=== PATIENT | male | born 1965 | race African-American/Black ===

== ENCOUNTER 2018-09-18 11:13 | Inpatient (IN) | payer MEDICAID ==
[~2018-09-18] VITALS: Ht 175.3 cm; Wt 132.9 kg
[2018-09-18] MEDS ORDERED: SODIUM CHLORIDE 0.9% 1,000 ML IV ONE (11:56)
[2018-09-18] MEDS ORDERED: MORPHINE SULFATE 4 MG/ML CPJ (NOT FOR IM USE) IV STA (11:56)
[2018-09-18] MEDS ORDERED: ONDANSETRON HCL 4MG/2ML INJ IV STA (11:56)
[2018-09-18] MEDS ORDERED: LEVOFLOXACIN 750MG PREMIX 150 ML IV ONE (14:00)
[2018-09-18] MEDS ORDERED: METRONIDAZOLE 500 MG PREMIX 100 ML IV ONE (14:00)
[2018-09-18 14:25] LABS: BASOPHILS % 0.4 % (0.0-2.0); EOSINOPHILS % 2.2 % (0.0-5.0); HEMATOCRIT. 40.7 % (42.0-52.0); HEMOGLOBIN. 12.7 g/dL (14.0-18.0); LYMPHOCYTES % 16.8 % (20.0-50.0); MEAN CORPUSCULAR HEMOGLOBIN 24.6 pg (28.0-32.0); MEAN PLATELET VOLUME 9.9 fl (7.4-10.4); MONOCYTES % 6.3 % (2.0-8.0); NEUTROPHILS % 74.3 % (40.0-76.0); PLATELET 228 x1000/uL (130-400); RED BLOOD CELL COUNT 5.15 mill/uL (4.7-6.1); RED CELL DISTRIBUTION WIDTH 17.4 % (11.6-14.6)
[2018-09-18 14:35] LABS: INR 1.1; PROTHROMBIN TIME 10.7 sec (9.1-11.1)
[2018-09-18 15:02] LABS: CLARITY URINE CLEAR (CLEAR); COLOR URINE YELLOW (YELLOW); KETONES URINE NEGATIVE (NEGATIVE); LEUKOCYTE ESTERASE URINE NEGATIVE (NEGATIVE); NITRITE URINE NEGATIVE (NEGATIVE); OCCULT BLOOD URINE TRACE (NEGATIVE); PROTEIN URINE 2+ (NEGATIVE); SPECIFIC GRAVITY URINE 1.012 (1.005-1.030)
[2018-09-18] MEDS ORDERED: IPRATROPIUM/ALBUTEROL 0.5-3(2.5)MG/3ML NEB INH PRN (16:15)
[2018-09-18] MEDS ORDERED: GUAIFENESIN 200MG/10ML SUGAR FREE UDC PO PRN (16:15)
[2018-09-18] MEDS ORDERED: ACETAMINOPHEN 650MG/20.3ML UDC GT PRN (16:15)
[2018-09-18] MEDS ORDERED: ACETAMINOPHEN 325MG TABLET PO PRN (16:15)
[2018-09-18] MEDS ORDERED: DOCUSATE SODIUM 100MG CAPSULE PO PRN (16:15)
[2018-09-18] MEDS ORDERED: ACETAMINOPHEN 650MG SUPP PR PRN (16:15)
[2018-09-18] MEDS ORDERED: DIPHENHYDRAMINE 50MG/ML VIAL IV PRN (16:15)
[2018-09-18] MEDS ORDERED: MAGNESIUM/ALUMINUM HYDROXIDE/SIMETHICONE 30ML UDC PO PRN (16:15)
[2018-09-18] MEDS ORDERED: NA PHOS,M-B/NA PHOS,DI-BA ENEMA 118ML PR PRN (16:15)
[2018-09-18] MEDS ORDERED: ONDANSETRON HCL 4MG/2ML INJ IV PRN (16:15)
[2018-09-18 17:10] LABS: CHLORIDE 104 mEq/L (98-107)
[2018-09-18 17:11] LABS: BASOPHILS % 0.5 % (0.0-2.0); EOSINOPHILS % 1.8 % (0.0-5.0); HEMATOCRIT. 39.9 % (42.0-52.0); HEMOGLOBIN. 12.6 g/dL (14.0-18.0); LYMPHOCYTES % 21.9 % (20.0-50.0); MEAN CORPUSCULAR HEMOGLOBIN 24.8 pg (28.0-32.0); MEAN CORPUSCULAR VOLUME 78.4 fL (80.0-94.0); MEAN PLATELET VOLUME 8.9 fl (7.4-10.4); MONOCYTES % 7.3 % (2.0-8.0); NEUTROPHILS % 68.5 % (40.0-76.0); PLATELET 270 x1000/uL (130-400); RED BLOOD CELL COUNT 5.08 mill/uL (4.7-6.1); RED CELL DISTRIBUTION WIDTH 17.1 % (11.6-14.6)
[2018-09-18 18:47] LABS: *AMPHETAMINES SCREEN URINE NEGATIVE (NEGATIVE); *BARBITURATES SCREEN URINE NEGATIVE (NEGATIVE); *BENZODIAZEPINES SCREEN URINE NEGATIVE (NEGATIVE); *COCAINE SCREEN URINE NEGATIVE (NEGATIVE)
[2018-09-18 18:48] LABS: CANNABINOID URINE SCREEN NEGATIVE (NEGATIVE); METHADONE URINE SCREEN NEGATIVE (NEGATIVE); OPIATES URINE SCREEN NEGATIVE (NEGATIVE); PHENCYCLIDINE URINE SCREEN NEGATIVE (NEGATIVE)
[2018-09-18 20:00] VITALS: BP 158/88
[2018-09-18] MEDS ORDERED: LEVOFLOXACIN 500MG PREMIX 100 ML IV SCH (21:00)
[2018-09-18 22:00] VITALS: BP 157/88
[2018-09-18] MEDS: HYDROCODONE/ACETAMINOPHEN 5/325MG TABLET PO PRN (23:25)
[2018-09-18] MEDS: CLONIDINE 0.1MG TABLET PO PRN (23:29)
[2018-09-18] MEDS: METRONIDAZOLE 500 MG PREMIX 100 ML IV SCH (23:30)
[2018-09-18] MEDS: ENOXAPARIN 40MG/0.4ML SYR SUBCUT SCH (23:32)
[2018-09-18] MEDS: SODIUM CHLORIDE 0.9% INJ 3ML FLUSH IVF SCH (23:51)
[2018-09-19] VITALS: BP 141/72
[2018-09-19] MEDS ORDERED: DEXTROSE 50% WATER 50ML SYRINGE IV PRN (00:15)
[2018-09-19 04:00] VITALS: BP 171/85
[2018-09-19] MEDS: METRONIDAZOLE 500 MG PREMIX 100 ML IV SCH ×2 (05:15→13:07)
[2018-09-19] MEDS: SODIUM CHLORIDE 0.9% INJ 3ML FLUSH IVF SCH ×2 (05:15→14:00)
[2018-09-19 07:25] LABS: CHLORIDE 105 mEq/L (98-107)
[2018-09-19 07:35] LABS: BASOPHILS % 0.6 % (0.0-2.0); HEMATOCRIT. 40.4 % (42.0-52.0); HEMOGLOBIN. 12.7 g/dL (14.0-18.0); LYMPHOCYTES % 18.5 % (20.0-50.0); MEAN CORPUSCULAR HEMOGLOBIN 24.7 pg (28.0-32.0); MEAN CORPUSCULAR VOLUME 78.8 fL (80.0-94.0); MEAN PLATELET VOLUME 8.8 fl (7.4-10.4); MONOCYTES % 9.3 % (2.0-8.0); NEUTROPHILS % 70.6 % (40.0-76.0); PLATELET 281 x1000/uL (130-400); RED BLOOD CELL COUNT 5.12 mill/uL (4.7-6.1); RED CELL DISTRIBUTION WIDTH 17.7 % (11.6-14.6)
[2018-09-19 07:38] LABS: LDL CHOLESTEROL 127 mg/dL (5-100)
[2018-09-19 07:39] LABS: HDL CHOLESTEROL 40 mg/dL (40-59)
[2018-09-19] MEDS: BLOOD SUGAR DIAGNOSTIC STRIP TEST SCH ×4 (07:39→21:00)
[2018-09-19 08:00] VITALS: BP 190/88
[2018-09-19] MEDS: HYDROCODONE/ACETAMINOPHEN 5/325MG TABLET PO PRN ×2 (08:36→17:51)
[2018-09-19] MEDS: ENOXAPARIN 40MG/0.4ML SYR SUBCUT SCH ×2 (08:37→22:21)
[2018-09-19] MEDS: CLONIDINE 0.1MG TABLET PO PRN ×2 (08:41→17:52)
[2018-09-19] MEDS: INSULIN LISPRO 100 UNITS/ML SUBCUT SCH ×4 (08:44→21:00)
[2018-09-19] MEDS: AMLODIPINE 10MG TABLET PO SCH (10:14)
[2018-09-19] MEDS: BENAZEPRIL 10MG TABLET PO SCH (10:14)
[2018-09-19 12:00] VITALS: BP 170/84
[2018-09-19 16:00] VITALS: BP 125/67
[2018-09-19] MEDS ORDERED: HYDROCODONE/ACETAMINOPHEN 10/325MG TABLET PO PRN (18:45)
[2018-09-19] MEDS ORDERED: MORPHINE SULFATE 4 MG/ML CPJ (NOT FOR IM USE) IV PRN (18:45)
[2018-09-19 20:00] VITALS: BP 168/96
[2018-09-19] MEDS: LEVOFLOXACIN 500MG PREMIX 100 ML IV SCH (22:20)
[2018-09-20] VITALS: BP 195/96
[2018-09-20] MEDS: METRONIDAZOLE 500 MG PREMIX 100 ML IV SCH ×3 (00:51→15:07)
[2018-09-20] MEDS: CLONIDINE 0.1MG TABLET PO PRN ×3 (00:52→21:11)
[2018-09-20 04:00] VITALS: BP 184/87
[2018-09-20] MEDS: BLOOD SUGAR DIAGNOSTIC STRIP TEST SCH ×4 (06:55→21:10)
[2018-09-20 08:00] VITALS: BP 211/101
[2018-09-20] MEDS: ENOXAPARIN 40MG/0.4ML SYR SUBCUT SCH ×2 (08:25→21:10)
[2018-09-20] MEDS: BENAZEPRIL 10MG TABLET PO SCH (08:27)
[2018-09-20] MEDS: AMLODIPINE 10MG TABLET PO SCH (08:28)
[2018-09-20] MEDS: INSULIN LISPRO 100 UNITS/ML SUBCUT SCH ×4 (08:38→21:26)
[2018-09-20 12:32] VITALS: BP 175/91
[2018-09-20] MEDS ORDERED: HYDRALAZINE HCL 50MG TABLET PO SCH (12:40)
[2018-09-20] MEDS: SODIUM CHLORIDE 0.9% INJ 3ML FLUSH IVF SCH ×2 (14:00→21:15)
[2018-09-20 16:00] VITALS: BP 188/103
[2018-09-20] MEDS: ENALAPRIL 1.25 MG in DEXTROSE 5% WATER 49 ML IV PRN (16:09)
[2018-09-20 20:00] VITALS: BP 195/100
[2018-09-20] MEDS: LEVOFLOXACIN 500MG PREMIX 100 ML IV SCH (21:08)
[2018-09-20] MEDS: HYDRALAZINE HCL 50MG TABLET PO SCH (21:11)
[2018-09-21] VITALS: BP 173/98
[2018-09-21 04:00] VITALS: BP 187/97
[2018-09-21] MEDS: CLONIDINE 0.1MG TABLET PO PRN ×2 (05:41→11:54)
[2018-09-21] MEDS: HYDRALAZINE HCL 50MG TABLET PO SCH ×2 (05:42→13:41)
[2018-09-21] MEDS: SODIUM CHLORIDE 0.9% INJ 3ML FLUSH IVF SCH (05:43)
[2018-09-21] MEDS: BLOOD SUGAR DIAGNOSTIC STRIP TEST SCH ×2 (05:45→12:21)
[2018-09-21] MEDS: INSULIN LISPRO 100 UNITS/ML SUBCUT SCH ×2 (07:54→11:55)
[2018-09-21] MEDS: METRONIDAZOLE 500 MG PREMIX 100 ML IV SCH ×2 (08:39)
[2018-09-21] MEDS: AMLODIPINE 10MG TABLET PO SCH (08:40)
[2018-09-21] MEDS: BENAZEPRIL 10MG TABLET PO SCH (08:40)
[2018-09-21] MEDS: ENOXAPARIN 40MG/0.4ML SYR SUBCUT SCH (08:41)
[2018-09-21 09:32] LABS: BASOPHILS % 0.7 % (0.0-2.0); EOSINOPHILS % 1.5 % (0.0-5.0); HEMATOCRIT. 41.9 % (42.0-52.0); HEMOGLOBIN. 13.2 g/dL (14.0-18.0); LYMPHOCYTES % 20.6 % (20.0-50.0); MEAN CORPUSCULAR HEMOGLOBIN 24.8 pg (28.0-32.0); MEAN CORPUSCULAR VOLUME 78.8 fL (80.0-94.0); MEAN PLATELET VOLUME 8.8 fl (7.4-10.4); MONOCYTES % 8.7 % (2.0-8.0); NEUTROPHILS % 68.5 % (40.0-76.0); PLATELET 298 x1000/uL (130-400); RED BLOOD CELL COUNT 5.32 mill/uL (4.7-6.1); RED CELL DISTRIBUTION WIDTH 17.8 % (11.6-14.6)
[2018-09-21 09:43] LABS: CHLORIDE 105 mEq/L (98-107)
[2018-09-21] MEDS ORDERED: ENALAPRIL 1.25MG/ML VIAL 1ML IV ONE (09:45)
[2018-09-21] MEDS: ENALAPRIL 1.25 MG in DEXTROSE 5% WATER 49 ML IV PRN (11:42)
[2018-09-21 12:00] VITALS: BP 186/88
[2018-11-18] MEDS ORDERED: AMLO10TA80 MT (12:37)
[2018-11-18] MEDS ORDERED: ATOR80TA MT (12:37)
[2018-11-18] MEDS ORDERED: METF-416 MT (12:37)
[2018-11-18] MEDS ORDERED: METO25TA6 MT (12:37)
[2018-11-18] MEDS ORDERED: FURO20TA4 MT (12:37)
[2018-11-18] MEDS ORDERED: PANT40TA4 MT (12:37)
[2018-11-18] MEDS ORDERED: AMLO10TA4 MT (12:37)
[2018-11-18] MEDS ORDERED: HYDR25TA MT (12:37)
[2018-11-18] MEDS ORDERED: NITR0.4T49 SL (12:37)
[2018-11-18] MEDS ORDERED: CLON0.1T PO (12:37)
[2018-11-18] MEDS ORDERED: clotrimazole (12:37)
[2018-11-18] MEDS ORDERED: DULO60CA63 MT (12:37)
[2018-11-18] MEDS ORDERED: RIVA20TA MT (12:37)
[2018-11-18] MEDS ORDERED: LISI-186 MT (12:37)
[2018-11-20] MEDS ORDERED: GLIP5TAB12 MT (10:18)
[2018-11-20] MEDS ORDERED: DOCU250C14 PO (10:18)
[2018-11-20] MEDS ORDERED: FOLI-43 PO (10:18)
[2018-11-20] MEDS ORDERED: METO-411 MT (10:18)
== END 2018-09-21 15:45 | disposition home or self-care (01) | DRG 248 ==
LOC: ER 11:13 → 6EST 14:12 → ENRESERV 16:35
PROVIDERS: ADMIT Family Medicine; ATTEND Family Medicine
DX: A04.9 Bacterial intestinal infection, unspecified (principal); F20.9 Schizophrenia, unspecified; Z68.41 Body mass index [BMI] 40.0-44.9, adult; E11.9 Type 2 diabetes mellitus without complications; E78.5 Hyperlipidemia, unspecified; I10 Essential (primary) hypertension; I25.10 Atherosclerotic heart disease of native coronary artery without angina pectoris; K76.9 Liver disease, unspecified; K80.20 Calculus of gallbladder without cholecystitis without obstruction; E66.9 Obesity, unspecified; I25.2 Old myocardial infarction; Z86.73 Personal history of transient ischemic attack (TIA), and cerebral infarction without residual deficits
CPT/HCPCS: 36415; 71045; 74176; 80061; 80305; 82962; 93005; 96374; 99285; C1893; J1650; J1815; J1956; J2270; J2405; J3490; J7030; J7040; J7060

== ENCOUNTER 2019-01-06 19:21 | Emergency (ER) | payer MEDICAID ==
[~2019-01-06] VITALS: Ht 172.7 cm; Wt 90.0 kg
[~2019-01-06 19:21] MED LIST: AMLO5TAB88 MT; ASPI-986 PO; CARV12.545 MT; DOCU250C14 PO; FOLI-43 PO; GLIP5TAB12 MT; ISOS30TA6 MT; LOSA100T32 MT; METO-411 MT; QUET50TA21 PO
[2019-01-06] MEDS ORDERED: LORAZEPAM 2MG/ML CPJ IV ONE (23:15)
[2019-01-06 23:55] LABS: CHLORIDE 110 mEq/L (98-107)
[2019-01-07] LABS: BASOPHILS % 0.7 % (0.0-2.0); EOSINOPHILS % 3.9 % (0.0-5.0); HEMATOCRIT. 32.5 % (42.0-52.0); HEMOGLOBIN. 10.5 g/dL (14.0-18.0); LYMPHOCYTES % 39.4 % (20.0-50.0); MEAN CORPUSCULAR HEMOGLOBIN 27.6 pg (28.0-32.0); MEAN CORPUSCULAR VOLUME 85.2 fL (80.0-94.0); MEAN PLATELET VOLUME 8.4 fl (7.4-10.4); MONOCYTES % 10.1 % (2.0-8.0); NEUTROPHILS % 45.9 % (40.0-76.0); PLATELET 306 x1000/uL (130-400); RED BLOOD CELL COUNT 3.81 mill/uL (4.7-6.1)
[2019-01-07] MEDS ORDERED: IOHEXOL-350 100 ML BOTTLE ONE (05:23)
[2019-01-07 07:30] VITALS: BP 156/83
[2019-01-09] MEDS ORDERED: ACET-2708 PO (04:28)
[2019-01-09] MEDS ORDERED: CLON0.1T PO (04:28)
[2019-01-09] MEDS ORDERED: BISA10SU62 RC (04:28)
[2019-01-09] MEDS ORDERED: HYDR-4001 PO (04:28)
[2019-01-09] MEDS ORDERED: ACET-2178 PO (04:28)
== END 2019-01-07 15:32 | disposition home or self-care (01) ==
LOC: ER 19:21
DX: F03.90 Unspecified dementia, unspecified severity, without behavioral disturbance, psychotic disturbance, mood disturbance, and anxiety (principal); R07.89 Other chest pain; I11.0 Hypertensive heart disease with heart failure; I50.9 Heart failure, unspecified; I25.2 Old myocardial infarction; F20.9 Schizophrenia, unspecified; E11.9 Type 2 diabetes mellitus without complications; Z79.899 Other long term (current) drug therapy; Z79.82 Long term (current) use of aspirin; Z86.73 Personal history of transient ischemic attack (TIA), and cerebral infarction without residual deficits
CPT/HCPCS: 36415; 71045; 71275; 80053; 83880; 84484; 85025; 85379; 93005; 96374; 99284; J2060; Q9967